=== PATIENT | male | born 1940 | race Caucasian/White ===

== ENCOUNTER 2017-01-04 11:02 | Day surgery (SDC) | payer MEDICARE ==
[2017-01-04] MEDS ORDERED: CEFAZOLIN SODIUM 2 GRAM PREMIX 100 ML IV PRN (11:30)
[2017-01-04] MEDS ORDERED: LACTATED RINGERS 1,000 ML ONE (12:06)
[2017-01-04] MEDS ORDERED: IV START KIT ONE (12:06)
[2017-01-04] MEDS ORDERED: FENTANYL 5 ML ONE (16:12)
[2017-01-04] MEDS ORDERED: MIDAZOLAM HCL 1 MG/ML 2ML VIAL ONE (16:12)
[2017-01-04] MEDS ORDERED: BUPIVACAINE 0.25% EPI PF 30 ML VIAL ONE (16:15)
[2017-01-04] MEDS ORDERED: KETAMINE HCL UD SYRINGE 100 MG/2 ML IV ONE (16:17)
[2017-01-04] MEDS ORDERED: CEFAZOLIN SODIUM 1,000 MG VIAL ONE (16:27)
[2017-01-04] MEDS ORDERED: SODIUM CHLORIDE 0.9% 50 ML ONE (16:28)
[2017-01-04] MEDS ORDERED: ONDANSETRON 4 MG/2ML 2 ML VIAL ONE (16:43)
[2017-01-04] MEDS ORDERED: DIPHENHYDRAMINE HCL 50 MG/1 ML VIAL ONE (16:43)
[2017-01-04] MEDS ORDERED: PROPOFOL 20 ML IV ONE (16:43)
[2017-01-04] MEDS ORDERED: ROCURONIUM BROMIDE 10 MG/ML DOSE IV ONE (16:43)
[2017-01-04] MEDS ORDERED: DEXAMETHASONE SOD PHOS 4 MG/1 ML VIAL ONE (16:43)
[2017-01-04] MEDS ORDERED: EPHEDRINE SULFATE UD SYR 25 MG 25 MG/5 ML SYRINGE IV ONE (16:44)
[2017-01-04] MEDS ORDERED: NALOXONE HCL 0.4 MG/ML VIAL IV PRN (16:53)
[2017-01-04] MEDS ORDERED: PROMETHAZINE HCL 25 MG/ML VIAL IM PRN (16:53)
[2017-01-04] MEDS ORDERED: ONDANSETRON 4 MG/2ML 2 ML VIAL IV PRN ×2 (16:53→19:00)
[2017-01-04] MEDS ORDERED: ATROPINE SULFATE 0.4 MG/1 ML VIAL IV PRN (16:53)
[2017-01-04] MEDS ORDERED: LACTATED RINGERS 1,000 ML IV SCH (17:00)
[2017-01-04] MEDS ORDERED: FENTANYL 100 MCG/2 ML VIAL ONE ×2 (18:13→18:39)
[2017-01-04] MEDS: FENTANYL 100 MCG/2 ML VIAL IV PRN ×2 (18:17→18:42)
[2017-01-04] MEDS ORDERED: HYDROMORPHONE HCL 1 MG/ML SYRINGE ONE (18:24)
[2017-01-04] MEDS: HYDROMORPHONE HCL 1 MG/ML SYRINGE IV PRN ×2 (18:30→18:38)
[2017-01-04] MEDS ORDERED: MORPHINE SULFATE 4 MG/ML SYRINGE ONE (18:42)
[2017-01-04] MEDS ORDERED: MORPHINE SULFATE 10 MG/ML SYRINGE IV ONE (18:43)
[2017-01-04] MEDS ORDERED: KETOROLAC TROMETHAMINE 15 MG/ML VIAL IV PRN (19:00)
[2017-01-04] MEDS ORDERED: OXYCODONE HCL 5 MG TABLET PO PRN (19:00)
[2017-01-04] MEDS ORDERED: HYDROMORPHONE HCL 1 MG/ML SYRINGE IV PRN (19:00)
--- NOTE | 2017-01-04 19:03 | OP ---
RAMÍREZ PATEL [id number] DATE OF OPERATION: January 04, 2017 PREOPERATIVE DIAGNOSIS: Recurrent incisional hernia. POSTOPERATIVE DIAGNOSIS: Recurrent incisional hernia. PROCEDURE: REPAIR OF RECURRENT INCISIONAL HERNIA WITH LARGE VENTRALEX MESH PATCH. SURGEON: Maikol Cuevas M.D. APPLIED RESEARCHER: Lety Smart C.F.A. ANESTHESIA: General anesthesia by Magdiel Guallpa C.R.N.A. INDICATIONS: This is a 76-year-old male who has undergone two prior ventral hernia repairs in the area around the umbilicus. He has a recurrence and presents now for elective repair. DESCRIPTION: With informed consent, he was taken to the operating room where he was laid supine on the operating room table. General endotracheal anesthetic was administered. The abdomen was prepped and draped in a usual sterile fashion. I chose to do a vertical incision since the majority of the hernia was cephalad to the umbilicus. Electrocautery was used to divide the subcutaneous fat. The hernia sac was quite superficial right below the skin in the area above the umbilicus. I entered into the hernia sac. There was some small bowel within. It was able to be reduced. There was some omentum stuck to the edges of the fascial defect. This was divided using electrocautery. I had the hernia sac from the skin until it was completely from the surrounding tissues. The hernia sac was excised at the level of the fascia. There was some prior laparoscopically placed mesh that was extending up into the hernia sac on the inferior aspect of the defect. I did excise a small amount of mesh. The remainder of the repair inferior to this was intact. I made sure there were no adhesions of the visceral structure to the anterior abdominal wall. The defect was about 5 cm in size. I elevated the fat from the fascia circumferentially. I could actually get the two fascial edges back together with minimal tension. I decided that intraabdominal mesh would help prevent another recurrence. The pre-peritneal planes were already obscured by two prior mesh repairs. A large Ventralex mesh patch was chosen. This was placed intraabdominally. It was secured with #0 Nurolon to the outer extent of the mesh with transfascial stitches. The tails were cut away, and then I brought the midline fascia together across the mesh with interrupted #0 Nurolon. This eliminated any bridging. The wound was irrigated. We appeared to have adequate hemostasis. The deeper subcutaneous tissues were brought together with some #3-0 Vicryl. The umbilical skin was sutured down with some #3-0 Vicryl to recreate a small umbilical dimple. The skin was closed with jessica. Dressings were applied. Abdominal binder was applied. He tolerated the procedure and was taken to the recovery room in stable condition. Note was mad that needle, instrument and lap counts were reported as correct at time of closure. [id number] Cc: Shawn Fritz M.D.
[2017-01-04] MEDS ORDERED: HYDROMORPHONE HCL 0.5 MG/0.5 ML SYRINGE IV PRN (19:15)
[2017-01-04] MEDS ORDERED: PUMP TUBING ONE (19:49)
[2017-01-04] MEDS: ACETAMINOPHEN 325 MG TABLET PO SCH (19:55)
[2017-01-04] MEDS: LACTATED RINGERS 1,000 ML IV SCH (19:55)
[2017-01-04 19:58] VITALS: BMI 27.2
[2017-01-04] MEDS ORDERED: FERROUS SULFATE (65 Fe) 325 MG TABLET PO SCH (21:00)
[2017-01-04] MEDS ORDERED: FAMOTIDINE 20 MG TABLET PO SCH (21:00)
[2017-01-04] MEDS ORDERED: PRAVASTATIN SODIUM 20 MG TABLET PO SCH (21:00)
[2017-01-04] MEDS ORDERED: LATANOPROST 0.005% 50 GTTS/2.5 ML BOT SOLN.DROP OU SCH (21:00)
[2017-01-04] MEDS: [UNRECOGNIZED DRUG - OTHER] OS SCH (21:05)
[2017-01-04] MEDS: TIMOLOL MALEATE 0.5% OS SCH (21:05)
[2017-01-05] MEDS: ACETAMINOPHEN 325 MG TABLET PO SCH ×2 (01:53→07:15)
[2017-01-05 07:34] VITALS: BP 124/57
--- NOTE | 2017-01-05 08:42 | PDOC43 ---
- Subjective Subjective: Reports Pain Tolerable - Objective Vital Signs Temperature 97.9 F 01/05/17 07:31 Pulse Rate 77 01/05/17 07:31 Respiratory Rate 17 01/05/17 07:31 Blood Pressure 124/57 01/05/17 07:31 O2 Saturation by Pulse Oximetry 99 01/05/17 07:31 Oxygen Delivery Method Room Air Oxygen Flow Rate 0 Active Medication Orders Category Date Time Status Acetaminophen [Tylenol] Med 01/04/17 19:00 Active 650 mg PO Q6H FERROUS SULFATE (65 Fe) [Ferrous Sulfate] Med 01/04/17 21:00 Active 325 mg PO BEDTIME Famotidine [Pepcid] Med 01/04/17 21:00 Active 20 mg PO BEDTIME Finasteride [Proscar] Med 01/05/17 21:00 Active 5 mg PO BEDTIME Hydromorphone HCl [Dilaudid] Med 01/04/17 19:00 Active 0.5 - 1 mg IV Q1H PRN Hydromorphone HCl [Dilaudid] Med 01/04/17 19:15 Active 0.5 - 1 mg IV Q1H PRN Ketorolac Tromethamine [Toradol] Med 01/04/17 19:00 Active 15 mg IV Q6H PRN Lactated Ringers 1,000 ml Med 01/04/17 19:00 Active IV 75 mls/hr Latanoprost 0.005% [Xalatan] Med 01/04/17 21:00 Active 1 gtts OU BEDTIME Ondansetron 4 mg/2ml Vial [Zofran] Med 01/04/17 19:00 Active 4 mg IV Q6H PRN Oxycodone HCl [Roxicodone] Med 01/04/17 19:00 Active 5 - 10 mg PO Q4H PRN Pravastatin Sodium [Pravachol] Med 01/04/17 21:00 Active 40 mg PO BEDTIME Sodium Chloride 0.9% Flush [Normal Saline 10ml Flush] Med 01/04/17 19:18 Active 10 ml IV PRN PRN Sodium Chloride 0.9% Flush [Normal Saline 10ml Flush] Med 01/05/17 01:00 Active 10 ml IV Q8HR Tamsulosin HCl [Flomax] Med 01/05/17 21:00 Active 0.4 mg PO BEDTIME Timolol Maleate 0.5% [Timoptic] Med 01/04/17 21:00 Active 1 gtts OS BID Intake and Output 01/04/17 01/05/17 01/06/17 06:59 06:59 06:59 Intake Total 2715 700 Output Total 475 900 Balance 2240 -200 General: Alert, Oriented x3 Abdomen: Soft Wound: Dressing Saturated (Replaced.) Psych/Mental Status: Normal Affect - Assessment/ Plan (1) Recurrent ventral incisional hernia Status: AcuteAssessment/ Plan: Home this am. Leave jones in for a couple of days with leg bag.
[2017-01-05] MEDS: TIMOLOL MALEATE 0.5% OS SCH (08:49)
[2017-01-05] MEDS: [UNRECOGNIZED DRUG - OTHER] OS SCH (08:49)
[2017-01-05] MEDS: LACTATED RINGERS 1,000 ML IV SCH (08:53)
[2017-01-05] MEDS ORDERED: FINASTERIDE 5 MG TABLET PO SCH (21:00)
[2017-01-05] MEDS ORDERED: TAMSULOSIN HCL 0.4 MG CAPSULE.DR PO SCH (21:00)
== END 2017-01-05 10:15 | disposition home or self-care (01) ==
LOC: SDC 11:02 → MS 19:00 → SDC 01-05 10:15
PROVIDERS: ATTEND Surgery
PROC: 0WUF0JZ Supplement Abdominal Wall with Synthetic Substitute, Open Approach (ICD-10-PCS; principal; 2017-01-05)
DX: K43.2 Incisional hernia without obstruction or gangrene (principal); N40.1 Benign prostatic hyperplasia with lower urinary tract symptoms; K21.9 Gastro-esophageal reflux disease without esophagitis; H40.9 Unspecified glaucoma; E78.5 Hyperlipidemia, unspecified; Z79.82 Long term (current) use of aspirin

== ENCOUNTER 2017-03-07 12:03 | Day surgery (SDC) | payer MEDICARE ==
[~2017-03-07 12:03] MED LIST: CEFAZOLIN SODIUM 2 GRAM PREMIX 100 ML IV PRN; IV START KIT ONE; LACTATED RINGERS 1,000 ML ONE
[2017-03-07] MEDS ORDERED: CEFAZOLIN SODIUM 2 GRAM PREMIX 100 ML IV ONE (12:37)
[2017-03-07] MEDS ORDERED: OPIUM/BELLADONNA ALKALOIDS 1 EACH SUP PR ONE (14:29)
[2017-03-07] MEDS ORDERED: FENTANYL 100 MCG/2 ML VIAL ONE ×2 (15:50→16:51)
[2017-03-07] MEDS ORDERED: BUPIVACAINE 0.75% SPINAL AMPUL 2 ML ONE (15:57)
[2017-03-07] MEDS ORDERED: PROPOFOL 40 ML IV ONE (16:39)
[2017-03-07] MEDS ORDERED: LABETALOL HCL 5 MG/ML 20ML VIAL IV PRN (16:59)
[2017-03-07] MEDS ORDERED: ATROPINE SULFATE 0.4 MG/1 ML VIAL IV PRN (16:59)
[2017-03-07] MEDS ORDERED: ONDANSETRON 4 MG/2ML 2 ML VIAL IV PRN ×2 (16:59→17:39)
[2017-03-07] MEDS ORDERED: PROMETHAZINE HCL 25 MG/ML VIAL IM PRN (16:59)
[2017-03-07] MEDS ORDERED: NALOXONE HCL 0.4 MG/ML VIAL IV PRN (16:59)
[2017-03-07] MEDS ORDERED: MEPERIDINE 25 MG/ML SYRINGE IV PRN (16:59)
[2017-03-07] MEDS ORDERED: HYDROMORPHONE HCL 1 MG/ML SYRINGE IV PRN (16:59)
[2017-03-07] MEDS ORDERED: FENTANYL 100 MCG/2 ML VIAL IV PRN (16:59)
[2017-03-07] MEDS ORDERED: HYDRALAZINE HCL 20 MG/1 ML VIAL IV PRN (16:59)
[2017-03-07] MEDS ORDERED: LACTATED RINGERS 1,000 ML IV SCH (17:00)
[2017-03-07] MEDS ORDERED: ONDANSETRON 4 MG/2ML 2 ML VIAL ONE (17:00)
[2017-03-07] MEDS ORDERED: HYDROCODONE/ACETAMINOPHEN 5/325MG TABLET PO PRN (17:39)
[2017-03-07] MEDS ORDERED: MENTHOL/CETYLPYRD 1 EACH LOZENGE PO PRN (17:39)
[2017-03-07] MEDS ORDERED: BLISTEX LIPSTICK 1 EACH TP PRN (17:39)
[2017-03-07] MEDS ORDERED: BISACODYL 10 MG SUP PR PRN (17:39)
[2017-03-07] MEDS ORDERED: MORPHINE SULFATE 2 MG/ML SYRINGE IV PRN (17:39)
[2017-03-07] MEDS ORDERED: OPIUM/BELLADONNA ALKALOIDS 1 EACH SUP PR PRN (17:39)
[2017-03-07 17:56] VITALS: BMI 27.8
--- NOTE | 2017-03-07 17:57 | OP ---
RAMÍREZ PATEL [id number] DATE OF OPERATION: March 07, 2017 SURGEON: Saman Chicas M.D. INFORMATICS EDUCATOR: None. ANESTHESIA: Spinal. 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 PROCEDURE: TRANSURETHRAL RESECTION OF THE PROSTATE. SPECIMENS: Chips of prostatic tissue. INDICATIONS: A 76-year-old man with a long history of lower urinary tract symptoms as well as a history of postoperative acute urinary retention, has been found to have persistent bladder outlet obstruction despite treatment with alpha farideh and subsequent finasteride addition. Symptoms remain elevated. He required catheterization for three to four days in December of this year. At this point he has elected surgical intervention. FINDINGS: The urethra was notable for a partial crescent like scar just outside the membranous urethra. Membranous urethra appeared to be intact. Prostatic fossa was 3.5 to 4 cm in length and obstructed bilateral lobes and periurethral lobe enlargement of the prostate with moderate bladder neck elevation. Ureteral orifices are normally disposed. Bladder wall is moderately trabeculated. PROCEDURE: The patient was identified and brought to the operating room where spinal anesthetic was applied. Then he was placed in a dorsal lithotomy position. The genital region was prepared and draped sterilely. The distal urethra was calibrated with [place] sounds up to 30 [place], and then a 28 [place] resectoscope sheath was introduced with the visual obturator. Findings are as reported above. Using saline as an irrigant and a bipolar loop cautery system, we began resection anteriorly, working down the lateral lobes and then from the bladder neck region out toward the verumontanum. Chips of tissue were removed through the resectoscope. Bleeding was controlled with cautery. Once the fossa had been adequately resected, chips removed and bleeding sufficiently controlled, we removed the resectoscope and passed a 24 [place] catheter to gravity drainage with 35 mL of water in its balloon. Three way saline irrigation was instituted. Estimated blood loss less than 50 mL. resection time approximately 40 minutes. No early complications. Patient tolerated the procedure well and was taken in stable condition to the post anesthesia room. cc: Saman Chicas M.D. Shawn Fritz M.D.
[2017-03-07] MEDS ORDERED: MORPHINE SULFATE 4 MG/ML SYRINGE IV PRN (19:39)
[2017-03-07] MEDS ORDERED: MORPHINE SULFATE 10 MG/ML SYRINGE IV PRN (19:39)
[2017-03-07] MEDS ORDERED: SODIUM CHLORIDE 0.9% FLUSH 10 ML ONE (19:40)
[2017-03-07] MEDS ORDERED: FAMOTIDINE 20 MG TABLET PO SCH (21:00)
[2017-03-07] MEDS ORDERED: FERROUS SULFATE (65 Fe) 325 MG TABLET PO SCH (21:00)
[2017-03-07] MEDS ORDERED: POLYETHYLENE GLYCOL 3350 17 G POWD.SUSP PO SCH (21:00)
[2017-03-07] MEDS ORDERED: PRAVASTATIN SODIUM 20 MG TABLET PO SCH (21:00)
[2017-03-07] MEDS: DOCUSATE SODIUM 250 MG CAPSULE PO SCH (21:04)
[2017-03-07] MEDS: PHENAZOPYRIDINE HCL 200 MG TABLET PO SCH (21:12)
[2017-03-07] MEDS: LATANOPROST 0.005% 50 GTTS/2.5 ML BOT SOLN.DROP OS SCH ×2 (21:31→22:12)
[2017-03-07] MEDS: TIMOLOL MALEATE 0.5% OS SCH (21:47)
[2017-03-07] MEDS: [UNRECOGNIZED DRUG - OTHER] OS SCH (21:47)
[2017-03-08] MEDS: DOCUSATE SODIUM 250 MG CAPSULE PO SCH (09:52)
[2017-03-08] MEDS: [UNRECOGNIZED DRUG - OTHER] OS SCH (09:52)
[2017-03-08] MEDS: TIMOLOL MALEATE 0.5% OS SCH (09:52)
[2017-03-08] MEDS: PHENAZOPYRIDINE HCL 200 MG TABLET PO SCH ×2 (09:53→11:30)
[2017-03-08] MEDS ORDERED: TIMOLOL MALEATE 0.5% OS SCH (10:15)
[2017-03-08] MEDS ORDERED: [UNRECOGNIZED DRUG - OTHER] OS SCH (10:15)
[2017-03-08] MEDS ORDERED: LATANOPROST 0.005% 50 GTTS/2.5 ML BOT SOLN.DROP OS SCH (10:15)
[2017-03-08 11:43] VITALS: BP 141/68
== END 2017-03-08 12:30 | disposition home or self-care (01) ==
LOC: SDC 12:03 → MS 17:56 → SDC 03-08 12:30
PROVIDERS: ATTEND Urology
PROC: 0VT08ZZ Resection of Prostate, Via Natural or Artificial Opening Endoscopic (ICD-10-PCS; principal; 2017-03-07)
DX: N40.1 Benign prostatic hyperplasia with lower urinary tract symptoms (principal); N13.8 Other obstructive and reflux uropathy; R33.8 Other retention of urine; N41.1 Chronic prostatitis; K21.9 Gastro-esophageal reflux disease without esophagitis; Z87.891 Personal history of nicotine dependence; Z79.899 Other long term (current) drug therapy